=== PATIENT | male | born 1985 | race Caucasian/White ===

== ENCOUNTER 2022-01-01 13:54 | Emergency (ER) | payer SELFPAY ==
[~2022-01-01] VITALS: Ht 182.9 cm; Wt 122.5 kg
== END 2022-01-01 15:04 | disposition home or self-care (01) ==
LOC: ED 13:54
DX: M23.92 Unspecified internal derangement of left knee (principal); Z88.6 Allergy status to analgesic agent
CPT/HCPCS: 99283

== ENCOUNTER 2022-02-09 19:32 | Emergency (ER) | payer BC ==
[~2022-02-09] VITALS: Ht 182.9 cm; Wt 133.0 kg
--- NOTE | 2022-02-10 17:25 | EKG ---
[facility] [address] [facility] [place] [address] Signed Sinus rhythm with 1st degree AV block Otherwise normal ECG No previous ECGs available Confirmed by JESSI PATEL MD ([id number] on 02/10/2022 5:25:01 PM Electronically Signed By: JESSI PATEL MD 02/10/22 1725 PATIENT NAME: NISHI CASTILLO Electrocardiogram DATE OF : 89 PHYSICIAN: JESSI PATEL MD REPORT #: [id number] REPORT IS CONFIDENTIAL AND NOT TO BE RELEASED WITHOUT AUTHORIZATION
== END 2022-02-09 22:45 | disposition home or self-care (01) ==
LOC: ED 19:32
DX: R42 Dizziness and giddiness (principal); Z88.6 Allergy status to analgesic agent; Z77.118 Contact with and (suspected) exposure to other environmental pollution
CPT/HCPCS: 36415; 80053; 83735; 84484; 85025; 93005; 93010; 99285-25